=== PATIENT | male | born 2000 | race Caucasian/White ===

== ENCOUNTER 2021-11-21 01:42 | Emergency (ER) | payer BC, SELFPAY ==
[2021-11-21 01:48] VITALS: BP 104/67; PULSE 44; RESP 18; TEMP 36.6; O2SAT 99; BMI 23.5
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
[2021-11-21 01:59] LABS: Basophils % 0.6 %; Eosinophils # 0.1 10^3/uL (0.0-0.8); Hematocrit 41.8 % (42.0-52.0); Hemoglobin 14.5 g/dL (11.7-16.6); Lymphocytes # 1.9 10^3/uL (1.5-6.5); Lymphocytes % 30.2 %; Mean Corpuscular HGB Conc 34.7 g/dL (30.0-36.0); Mean Corpuscular Hemoglobin 27.8 pg (28.0-34.0); Mean Corpuscular Volume 80.2 fl (80-94); Mean Platelet Volume 10.5 fL (7.4-10.4); Monocytes # 0.3 10^3/uL (0.2-0.9); Monocytes % 4.6 %; Neutrophils # 3.98 10^3/uL (1.8-8.0); Neutrophils % 63.3 %; Nucleated Red Blood Cells % 0 %; Platelet Count 182 10^3/cmm (130-400); Red Blood Count 5.21 10^6/uL (4.1-5.3); Red Cell Distribution Width 12.5 % (12.1-15.1); White Blood Count 6.3 10^3/uL (4.5-13.0)
[2021-11-21] MEDS: sodium chloride 0.9% 1,000 ML 999 ML IV ×2 (02:03→05:01)
[2021-11-21] MEDS: ondansetron 2 mg/ML SDV 2 mL 4 MG IVP (02:03)
[2021-11-21 02:15] LABS: Alanine Aminotransferase 15 U/L (0-41); Albumin Level 4.4 g/dL (3.5-5.2); Alcohol Level 191 mg/dL (0-10); Alkaline Phosphatase 79 IU/L (40-130); Aspartate Amino Transferase 23 U/L (0-40); Blood Urea Nitrogen 9 mg/dL (6-20); Calcium 8.3 mg/dL (8.5-10.5); Carbon Dioxide 25 mmol/L (22-29); Chloride 105 mmol/L (98-107); Globulin 2.5 g/dL (1.3-4.6); Glomerular Filtration Rate 95.3 mL/min (90-130); Glucose 90 mg/dL (65-115); Osmolality Calculated 288 mOsm/kg (285-295); Sodium 140 mmol/L (136-145); Total Bilirubin 0.2 mg/dL (0.15-1.2); Total Protein 6.9 g/dL (6.6-8.7)
[2021-11-21 02:26] LABS: Anion Gap 13.3 (5-19); Potassium 3.3 mmol/L (3.5-5.1)
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
[2021-11-21 05:58] VITALS: BP 97/52; PULSE 51; RESP 16; TEMP 36.6; O2SAT 99
== END 2021-11-21 06:00 | disposition home or self-care (01) ==
PROVIDERS: Emergency Provider Emergency Medicine; PCP Nurse Practitioner
DX: F10.129 Alcohol abuse with intoxication, unspecified (principal); Y90.6 Blood alcohol level of 120-199 mg/100 ml
CPT/HCPCS: 70450; 80053; 80307; 85025; 96374; 99285; J2405; J7030

== ENCOUNTER 2022-08-24 18:39 | Emergency (ER) | payer BC, SELFPAY ==
[2022-08-24 18:59] VITALS: BP 137/90; PULSE 76; RESP 20; TEMP 37; O2SAT 96; BMI 23.5
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
[2022-08-24] MEDS: morphine 4 mg/mL SDV 1 mL IVP ×3 (19:46→23:58)
[2022-08-24 19:48] VITALS: BP 123/69; PULSE 75; O2SAT 96
[2022-08-24] MEDS: iohexol 350 mg/mL 500 mL Btl (per mL) IV (20:42)
[2022-08-24 21:39] VITALS: RESP 16; O2SAT 95
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
[2022-08-24] MEDS: acetaminophen 500 mg Tablet 1000 MG PO (23:57)
[2022-08-24] MEDS: ketorolac 30 mg/mL INJ 15 MG IVP (23:58)
[2022-08-25 00:02] VITALS: BP 125/74; PULSE 55; RESP 16; O2SAT 98
[2022-08-25 00:39] VITALS: BP 125/74; PULSE 55; RESP 16; O2SAT 98
[2022-08-25] MEDS: HYDROcodone-acetaminophen 5-325 mg Tablet 2 TAB PO (00:39)
--- NOTE | 2022-08-25 09:39 | DCPLANNER ---
Addendum entered by Leticia Fermin 08/26/22 09:14: optical store manager called [facility] ortho to confirm that facility had received patients information. optical store manager was told that clinic had received patients information, it will be reviewed and clinic will call patient. Original Note: optical store manager had message to schedule a follow up appointment for patient with ortho at [facility]. optical store manager faxed patients information to the office at [facility]. Patients information will be reviewed, clinic will call patient with appointment information.
== END 2022-08-25 00:40 | disposition home or self-care (01) ==
PROVIDERS: Emergency Provider Emergency Medicine; PCP Nurse Practitioner
DX: S43.102A Unspecified dislocation of left acromioclavicular joint, initial encounter (principal); S42.102A Fracture of unspecified part of scapula, left shoulder, initial encounter for closed fracture; V59.40XA Driver of pick-up truck or van injured in collision with unspecified motor vehicles in traffic accident, initial encounter
CPT/HCPCS: 70450; 71260; 72125; 73030; 73200; 73552; 74177; 96374; 96375; 96376; 99285; J1885; J2270; Q9967

== ENCOUNTER 2022-10-08 06:00 | Outpatient (RCR) | payer BC, SELFPAY | END 2022-11-06 23:59 | disposition home or self-care (01) | LOC: TPT 06:00 | PROVIDERS: Visit Provider Orthopaedic Surgery | DX: S42.152D Displaced fracture of neck of scapula, left shoulder, subsequent encounter for fracture with routine healing (principal); X58.XXXD Exposure to other specified factors, subsequent encounter | CPT/HCPCS: 97110; 97140; 97161 ==

== ENCOUNTER 2022-11-07 06:00 | Outpatient (RCR) | payer BC, SELFPAY | END 2022-12-07 23:59 | disposition home or self-care (01) | LOC: TPT 06:00 | PROVIDERS: Visit Provider Orthopaedic Surgery | DX: S42.152D Displaced fracture of neck of scapula, left shoulder, subsequent encounter for fracture with routine healing (principal); X58.XXXD Exposure to other specified factors, subsequent encounter | CPT/HCPCS: 97110; 97140 ==

== ENCOUNTER 2023-11-17 23:06 | Emergency (ER) | payer BC, SELFPAY ==
[2023-11-17 23:10] VITALS: BP 125/87; PULSE 79; RESP 14; TEMP 36.9; O2SAT 96
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
[2023-11-17] MEDS: amoxicillin-clav 875-125 mg Tablet 1 TAB PO (23:45)
[2023-11-17] MEDS: bacitracin ointment Pkt 1 EACH TOPICAL (23:45)
--- NOTE | 2023-11-17 23:59 | PC.NURSE ---
Elbow abrasion was cleaned with peroxide and soap and water. rinsed and dried well. bacitricin was applied and area was covered with a telfa and secured with coban.
[2023-11-18 00:01] VITALS: BP 121/70; PULSE 71; RESP 18; O2SAT 98
== END 2023-11-18 00:03 | disposition home or self-care (01) ==
PROVIDERS: Emergency Provider Nurse Practitioner Family; PCP Nurse Practitioner
DX: S50.312A Abrasion of left elbow, initial encounter (principal); S40.212A Abrasion of left shoulder, initial encounter; V28.49XA Other motorcycle driver injured in noncollision transport accident in traffic accident, initial encounter
CPT/HCPCS: 99283